=== PATIENT | female | born 1945 | race Caucasian/White ===

== ENCOUNTER → 2021-02-18 | Outpatient (CLI) | payer OTHER ==
--- NOTE | 2021-02-18 13:50 | KCIC ---
EXAM: CT coronary artery calcium screening; radiologist over read. HISTORY: Mixed hyperlipidemia. Palpitations. TECHNIQUE: Computed tomographic images of the chest were obtained without contrast. Multiplanar refor matting was performed. *One or more of the following individualized dose reduction techniques were utilized for this examina tion: 1. Automated exposure control. 2. Adjustment of the mA and/or kV according to patient size. 3. Use of iterative reconstruction technique. COMPARISON: None. FINDINGS: The heart is upper normal in size. There is calcified atherosclerotic plaque involving the aorta and coronary arteries. No pathologically enlarged lymph node is seen. There is no infiltrate, p leural effusion or pneumothorax. There is linear scarring or atelectasis within the bilateral lower l obes. There is posterior dependent atelectasis. There are few calcified granulomas. There is coarse c alcification along the anterior right hepatic lobe, likely post procedural or post traumatic in etiol ogy. There is no acute finding involving the upper abdomen or osseous structures. Coronary artery calcium score: Left main artery - 0 Left anterior descending - 10.4 Left circumflex - 0 Right coronary artery - 3.4 Posterior descending artery - 0 TOTAL = 13.8 IMPRESSION: 1. Calcified atherosclerotic plaque involving the coronary arteries. The coronary calcium score is 13 .8. There is mild atherosclerotic plaque. 2. No acute thoracic finding. Electronically signed by: Maricarmen Simmons MD (02/18/2021 1:48 PM) [id number]
== END ==
LOC: KCIC CT 12:51
PROVIDERS: ATTEND Family Medicine
DX: I25.10 Atherosclerotic heart disease of native coronary artery without angina pectoris (principal); I70.0 Atherosclerosis of aorta; E78.5 Hyperlipidemia, unspecified; J98.11 Atelectasis; J84.10 Pulmonary fibrosis, unspecified; K76.89 Other specified diseases of liver
CPT/HCPCS: 75571